=== PATIENT | male | born 2000 | race Hispanic/Latino ===

== ENCOUNTER 2021-09-17 08:40 | Emergency (ER) | payer MEDICAID ==
[~2021-09-17] VITALS: Ht 160 cm; Wt 113.4 kg
[2021-09-17 08:42] VITALS: BP 136/79
[2021-09-17] MEDS ORDERED: ACET-66 PO (08:52)
[2021-09-17] MEDS ORDERED: FLUT16H NASAL (08:52)
[2021-09-17] MEDS ORDERED: LORA10TA7 PO (08:52)
== END 2021-09-17 09:03 | disposition home or self-care (01) ==
LOC: EDH 08:44
DX: J06.9 Acute upper respiratory infection, unspecified (principal)